=== PATIENT | male | born 1990 | race Caucasian/White ===

== ENCOUNTER 2017-11-14 02:30 | Emergency (ER) | payer SELFPAY ==
[2017-11-14] VITALS (8 sets, daily range): BP systolic 94–133; BP diastolic 56–78; PULSE 68–90; RESP 13–18; TEMP 35.9; O2SAT 94–100; BMI 23.1
--- NOTE | 2017-11-14 02:45 | EKG12_ITS ---
Test Reason : ALT MENTAL STATUS Blood Pressure : / mmHG Vent. Rate : 079 BPM Atrial Rate : 079 BPM P-R Int : 124 ms QRS Dur : 096 ms QT Int : 414 ms P-R-T Axes : 065 071 055 degrees QTc Int : 474 ms Normal sinus rhythm with sinus arrhythmia Normal ECG Confirmed by BLAKE PERAZA, PAMELLA ([id number]), field map editor TERA SEGAL ([id number]) on 11/17/2017 1:30:19 PM Referred By: KEATON Confirmed By:PAMELLA LOZANO MD
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
--- NOTE | 2017-11-14 02:55 | ED.RN ---
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
[2017-11-14 03:03] LABS: Absolute Lymphocyte Count 1.54 X10^3/ul (0.83-4.51); Absolute Neutrophil Count 7.2 X10^3/uL (2.0-7.7); Basophil# 0.05 X10^3/uL; Basophil% 0.5 % (0-1); Eosinophil# 0.15 X10^3/uL; Eosinophils% 1.5 % (0-5); Hematocrit 43.3 % (40-54); Hemoglobin 15.2 g/dl (13.0-16.5); Lymphocyte # 1.54 X10^3/ul (4.0); Lymphocyte % 15.6 % (19-41); Mean Corp Hgb Conc 35.1 g/gl (32-36); Mean Corpuscular Hgb 30.7 pg (27.0-32.0); Mean Corpuscular Volume 87.5 fL (80-94); Mean Platelet Vol. 9.4 fl (6.2-12.0); Monocyte% 9.1 % (0-10); Neutrophil # 7.21 X10^3/uL (2.7-7.7); Neutrophil % 73.2 % (47-70); POSITIVE COUNT NO; POSITIVE DIFFERENTIAL NO; POSITIVE MORPHOLOGY NO; Platelet Count 268 K/mm3 (150-450); RBC Distribution Width CV 13.2 % (11.6-14.6); RBC Distribution Width SD 42.2 fl (35.1-43.9); Red Blood Count 4.95 M/mm3 (4.6-6.2); White Blood Count 9.9 K/mm3 (4.4-11.0)
[2017-11-14 03:24] LABS: AST(SGOT) 15 U/L (15-37); Alanine Aminotransfer ALT/SGPT 18 U/L (16-61); Albumin, Serum 4.2 g/dL (3.2-5.0); Alkaline Phosphatase 82 U/L (45-117); Anion Gap 9 (5-15); BUN 14 mg/dL (7-18); BUN/Creat Ratio 16.3 RATIO (10-20); Bilirubin, Direct 0.24 mg/dL (0.00-0.30); Calcium,Total 8.7 mg/dL (8.5-10.1); Chloride 106 mmol/L (98-107); Creatinine, Serum 0.86 mg/dL (0.70-1.30); EST Glomerular Filtration Rate 115 mL/min (>60); Est Glom Filt Rate - Afr Amer 139 mL/min (>60); Estimated Creatinine Clearance 139.85 ml/min; Globulin 3.6 g/dL (2.2-4.2); Glucose 90 mg/dL (74-106); Potassium 3.6 mmol/L (3.5-5.1); Protein, Total 7.8 g/dL (6.4-8.2); Sodium Level 140 mmol/L (136-145)
[2017-11-14 03:43] LABS: Alcohol, Blood (Medical)-Serum < 3.0 mg/dL
[2017-11-14 03:47] LABS: Squamous Epithelial Cells - UA 0 SEEN /hpf (0-5)
[2017-11-14 03:52] LABS: Color, Urine Amber (Yellow); Glucose, Dipstick Normal (Normal); Ketone-Dipstick 5 mg/dl (Negative); Leukocyte Esterase-Dipstick 25 /ul (Negative); Nitrite-Dipstick Negative (Negative); Occult Blood-Urine 25 /ul (Negative); Protein-Dipstick 30 mg/dl (Negative); Specific Gravity, Urine 1.025 (1.002-1.030); Urine Clarity Clear (Clear); Urine Urobilinogen 4 mg/dl (Normal)
[2017-11-14 03:59] LABS: Mucous, Urine 3+ /hpf (<or=2+); Red Blood Cells-Urine 0-5 SEEN /hpf (0-5); White Blood Cells 5-10 SEEN /hpf (0-5)
[2017-11-14 04:00] LABS: Urine Bilirubin Dipstick 1 mg/dL (Negative)
--- NOTE | 2017-11-14 04:05 | ED.RN ---
spoke with patients mother at this time and notified her that he is in the ER. Per mother she has no contact with her son. All information should go through his grandmother. mothers phone number [phone]
[2017-11-14 04:12] LABS: Amphetamine Urine VISTA POSITIVE (<1000 ng/mL); Barbiturate Urine VISTA NEGATIVE (< 200 ng/mL); Benzodiazepine Urine VISTA NEGATIVE (< 200 ng/mL); Cocaine Urine VISTA NEGATIVE (< 300 ng/mL); Ecstacy Urine VISTA NEGATIVE (< 500 ng/mL); Methadone Urine VISTA NEGATIVE (< 300 ng/mL); PCP Urine VISTA NEGATIVE (< 25 ng/mL); THC Urine VISTA POSITIVE (< 50 ng/mL); Vista UDS pH Range 6
--- NOTE | 2017-11-14 08:53 | NURSING ---
CALLED CRISIS, CATALINA
--- NOTE | 2017-11-14 11:10 | ED.DEP ---
ED Disposition - Plan for ED Patient: Disposition: Home or Assisted Living Chief Complaint: Mental Health Instructions: ED Drug Abuse General Referrals: EIGHTY,ONE [STAFF PHYSICIAN] - Counseling,Center [GROUP OF PHYSICIANS] - Keep Jorge appointment
== END 2017-11-14 11:24 | disposition home or self-care (01) ==
PROVIDERS: Emergency Provider Emergency Medicine
DX: F29 Unspecified psychosis not due to a substance or known physiological condition (principal); R45.851 Suicidal ideations
CPT/HCPCS: 70450; 71046; 80048; 80076; 80307; 80320; 81001; 85025; 87086; 87088; 93005; 99283; G0480

== ENCOUNTER 2018-01-08 15:44 | Emergency (ER) | payer SELFPAY ==
[2018-01-08] VITALS (8 sets, daily range): BP systolic 88–146; BP diastolic 57–104; PULSE 65–112; RESP 14–22; TEMP 36.9; O2SAT 96–99; BMI 20.9
--- NOTE | 2018-01-08 15:55 | ED.RN ---
PT ARRIVED WITH HANDCUFFS, HANDCUFFS REMOVED AND PT IN RESTRAINTS.
--- NOTE | 2018-01-08 16:13 | ED.DCSUM_ITS ---
- ER Visit Summary Date of Service: 01/08/18 Chief Complaint: Depressed, agitated and suicidal History of Present Illness: The patient is a 27 M police were called and seen. Patient was threatening to harm himself. He had already caused multiple superficial lacerations from cutting himself on his upper extremities chest and lower extremities. All were superficial wounds. None need to be repaired. He was holding something to his neck threatening to kill himself. It happened to be a golf divot tool. Denies any overdose. He does believe that he used cocaine today. And has a history of drug abuse. He was tasered by the police. Physical Examination: Young male agitated. Currently in four-point restraints. Emotionally upset and tearful. Physically very active. Vital signs are stable. He is afebrile. He does not smell of alcohol. H EENT exam atraumatic. Pupils round reactive light. No facial or scalp trauma. Neck nontender trachea midline. No signs of trauma. Lungs clear to auscultation bilaterally. Chest wall nontender. He does have multiple superficial lacerations on his upper chest and upper left shoulder and extremity. Heart regular rhythm rate about 110 no murmur. Abdomen soft nontender. No peritoneal signs. Pelvic girdle intact. He is moving all 4 extremities. Neurovascular intact. And of the wounds are significant enough to need to be sewn they are all superficial lacerations that are self-inflicted. Back exam is nontender. Neurologically is awake alert moving all 4 extremities. Following commands and answering questions. Test Results: Mental health workup. Emergency Department Course and Treatment: ing center personnel is here. They are going to talk with the patient. They did review his history and he has not been the counseling center for over a year. He is a no-show on multiple visits. Treatment Plan: Number ED mental health evaluation by the counseling center will decide on a disposition. Disposition: [] Impression: Acute agitation and depression with a history of underlying psychiatric illness This note was generated with [employer]TM) by [employer] dictation software. It may contain incorrect words, spelling, and punctuation that were not noted in review of the chart prior to signing ED Disposition - Plan for ED Patient: Chief Complaint: Mental Health Referrals: Care Physician,No Primary [Primary Care Provider] -
[2018-01-08] MEDS: Ziprasidone IM 20 MG/ML VIAL IM (16:18)
[2018-01-08 16:21] LABS: Absolute Lymphocyte Count 2.11 X10^3/ul (0.83-4.51); Absolute Neutrophil Count 4.8 X10^3/uL (2.0-7.7); Basophil# 0.08 X10^3/uL; Eosinophil# 0.14 X10^3/uL; Eosinophils% 1.7 % (0-5); Hemoglobin 14.5 g/dl (13.0-16.5); Lymphocyte # 2.11 X10^3/ul (4.0); Lymphocyte % 26.1 % (19-41); Mean Corp Hgb Conc 34.5 g/gl (32-36); Mean Corpuscular Hgb 29.7 pg (27.0-32.0); Mean Corpuscular Volume 85.9 fL (80-94); Mean Platelet Vol. 10.1 fl (6.2-12.0); Monocyte# 0.95 X10^3/uL; Monocyte% 11.8 % (0-10); Neutrophil # 4.79 X10^3/uL (2.7-7.7); Neutrophil % 59.3 % (47-70); Platelet Count 276 K/mm3 (150-450); RBC Distribution Width CV 13.3 % (11.6-14.6); RBC Distribution Width SD 40.9 fl (35.1-43.9); Red Blood Count 4.89 M/mm3 (4.6-6.2); White Blood Count 8.1 K/mm3 (4.4-11.0)
[2018-01-08 16:25] LABS: Anion Gap 13 (5-15); BUN 7 mg/dL (7-18); BUN/Creat Ratio 5.7 RATIO (10-20); Chloride 107 mmol/L (98-107); Creatinine, Serum 1.22 mg/dL (0.70-1.30); EST Glomerular Filtration Rate 77 mL/min (>60); Est Glom Filt Rate - Afr Amer 93 mL/min (>60); Estimated Creatinine Clearance 94.26 ml/min; Glucose 91 mg/dL (74-106); Potassium 3.4 mmol/L (3.5-5.1); Sodium Level 143 mmol/L (136-145)
[2018-01-08 16:26] LABS: POSITIVE COUNT NO; POSITIVE DIFFERENTIAL NO; POSITIVE MORPHOLOGY NO
--- NOTE | 2018-01-08 17:19 | ED.RN ---
LINETTE WITH CRISIS CALLED AND ASKED TO BE CONTACTED WHEN PATIENTS URINE RESULTS COME BACK
[2018-01-08 17:34] LABS: Amphetamine Urine VISTA POSITIVE (<1000 ng/mL); Barbiturate Urine VISTA NEGATIVE (< 200 ng/mL); Benzodiazepine Urine VISTA NEGATIVE (< 200 ng/mL); Cocaine Urine VISTA NEGATIVE (< 300 ng/mL); Ecstacy Urine VISTA POSITIVE (< 500 ng/mL); Methadone Urine VISTA NEGATIVE (< 300 ng/mL); PCP Urine VISTA NEGATIVE (< 25 ng/mL); THC Urine VISTA POSITIVE (< 50 ng/mL); Vista UDS pH Range 6
--- NOTE | 2018-01-08 19:35 | ED.RN ---
NURSE WENT IN TO TALK TO PT TO SEE IF HE WAS COOPERATIVE ENOUGH TO START TAKING RESTRAINTS OFF, WHEN ASKED IF PT WOULD BE COOPERATIVE IF NURSE TOOK ONE RESTRAINT OFF PT SHOOK HIS HEAD NO AND WOULD NOT REPLY TO ANY OF THE NURSES QUESTIONS
--- NOTE | 2018-01-08 20:50 | ED.RN ---
AT THIS TIME PT HAD RIGHT WRIST RESTRAINT REMOVED, PT STATED THAT HE WOULD COOPERATE WITH NURSING STAFF AND LONG HE COOPERATES HE CAN KEEPS THIS RESTRAINT OFF AND WE WILL CONTINUE TO REMOVE RESTRAINTS BASED ON HIS COOPERATION.PT WAS GIVEN A SANDWICH, COOKIES AND WATER AT THIS TIME
--- NOTE | 2018-01-08 21:27 | ED.RN ---
PT REPORTS WANTING TO BE TAKEN OUT OF RESTRAINTS, PT IS CURRENTLY COOPERATIVE WITH THE REMOVAL OF HIS SHORTS, BLANKETS, PILLOW AND DRINKS PROVIDED FOR COMFORT. PT'S LEFT LEG TAKEN OUT OF RESTRAINTS
--- NOTE | 2018-01-08 21:50 | ED.RN ---
PT IS STILL BEING COOPERATIVE AND AGREES TO STAY COOPERATIVE SO HIS LAST TWO RESTRAINTS WERE REMOVED, PT EXPLAINED TO THAT LONG HE STAYS COOPERATIVE WITH US THEN HE WILL REMAIN OUT OF THE RESTRAINTS
[2018-01-09] VITALS (10 sets, daily range): BP systolic 103–123; BP diastolic 52–77; PULSE 54–85; RESP 16–20; O2SAT 96–98
--- NOTE | 2018-01-09 00:19 | EKG12_ITS ---
Test Reason : MENTAL HEALTH Blood Pressure : / mmHG Vent. Rate : 052 BPM Atrial Rate : 052 BPM P-R Int : 120 ms QRS Dur : 104 ms QT Int : 456 ms P-R-T Axes : 053 075 070 degrees QTc Int : 424 ms Sinus bradycardia Otherwise normal ECG Confirmed by RUBI PERAZA, LINA ([id number]), newspaper copy editor TERA SEGAL ([id number]) on 01/14/2018 1:53:55 PM Referred By: RICARDO Confirmed By:LINA VENEGAS MD
[2018-01-09 00:54] LABS: AST(SGOT) 19 U/L (15-37); Alanine Aminotransfer ALT/SGPT 13 U/L (16-61); Albumin, Serum 3.5 g/dL (3.2-5.0); Alkaline Phosphatase 76 U/L (45-117); Bilirubin, Direct 0.15 mg/dL (0.00-0.30); Protein, Total 6.5 g/dL (6.4-8.2)
--- NOTE | 2018-01-09 06:57 | NURSING ---
LINETTE CALLED FROM CRISIS. IS GOING TO CALL [facility] TO SEE WHAT THE STATUS OF THE [facility] [facility] IS.
--- NOTE | 2018-01-09 08:53 | ED.RN ---
PT REFUSES TO BE TRANSFERRED. WILL NOT GET ON COT. MEAL GIVEN PT CONTINUES TO REFUSE. SECURITY AT BEDSIDE. POLICE CALLED. [place]
[2018-01-09] MEDS: Ziprasidone IM 20 MG/ML VIAL IM (09:27)
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
[2018-01-09] MEDS: LORazepam 2 MG/ML Syringe IM (09:56)
== END 2018-01-09 09:35 ==
PROVIDERS: Emergency Medicine; Emergency Provider Emergency Medicine
DX: F32.9 Major depressive disorder, single episode, unspecified (principal); R45.1 Restlessness and agitation; X78.9XXA Intentional self-harm by unspecified sharp object, initial encounter; Y93.9 Activity, unspecified; Y92.89 Other specified places as the place of occurrence of the external cause; Y99.9 Unspecified external cause status; Z72.0 Tobacco use; F12.10 Cannabis abuse, uncomplicated
CPT/HCPCS: 80048; 80076; 80307; 80320; 85025; 93005; 99285; A4216; G0480; J3486

== ENCOUNTER 2018-02-11 10:39 | Outpatient (REF) | payer SELFPAY ==
[2018-02-11 08:55] VITALS: BP 114/67; PULSE 73; RESP 16; TEMP 36.4; O2SAT 97; BMI 21.1
--- NOTE | 2018-02-11 09:03 | EKG12_ITS ---
Test Reason : [facility] [place] Blood Pressure : / mmHG Vent. Rate : 062 BPM Atrial Rate : 062 BPM P-R Int : 126 ms QRS Dur : 102 ms QT Int : 422 ms P-R-T Axes : 050 074 068 degrees QTc Int : 428 ms Normal sinus rhythm with sinus arrhythmia Normal ECG Confirmed by BLAKE PERAZA, PAMELLA ([id number]), production editor JOSÉ TAFOYA ([id number]) on 02/13/2018 9:08:16 AM Referred By: EVERTON Confirmed By:PAMELLA LOZANO MD
--- NOTE | 2018-02-11 09:08 | CT_ITS ---
STUDY: CT BRAIN WITHOUT CONTRAST REASON FOR EXAM: Male, 27 years old. Trauma RADIATION DOSAGE (If Supplied By Facility): CTDIvol = ( 44.99 ) mGy, DLP = ( 762.36 ) mGycm TECHNIQUE: Transaxial CT imaging of the brain was performed without administration of intravenous contrast material. Sagittal and coronal reconstructed images are provided and reviewed. Individualized dose optimization techniques were used for this CT. COMPARISON: 11/14/2017 FINDINGS: Normal soft tissue structures. Normal calvarium. Normal size ventricles and extra-axial spaces for the patient's age. Normal white matter tracts of the cerebral hemispheres. Normal basal ganglia and thalami. Normal brainstem. Normal cerebellum. There is no intracranial hemorrhage. There are no findings of an acute ischemic infarction. Normal visualized paranasal sinuses. CT/Brain/Head without Contrast IMPRESSION: Normal unenhanced CT scan of the brain. Electronically Signed: Wsely Quinteros DO at 10:17 EDT Tel , Service support ,
--- NOTE | 2018-02-11 09:08 | RAD_ITS ---
STUDY: X-RAY - RIGHT HAND REASON FOR EXAM: Male, 27 years old. Pain TECHNIQUE: 3 view(s) of the hand. COMPARISON: None. FINDINGS: Normal radiocarpal articulation. Normal distal radioulnar joint. Normal visualized carpal bones. Normal carpal articulations Normal carpometacarpal articulation of the thumb. Normal second through fifth carpometacarpal joints. There is deformity to the fifth metacarpal suggesting remote fracture. Normal metacarpophalangeal joint of the thumb. Normal interphalangeal joint of the thumb. Normal proximal and distal phalanges of the thumb. Normal metacarpophalangeal joints of the second through fifth fingers. Normal proximal and distal interphalangeal joints of the second through fifth fingers. Normal phalanges of the second through fifth fingers. The soft tissue structures are unremarkable. RAD/Hand Min 3 Views IMPRESSION: Suspected remote fracture to the fifth metacarpal. No acute fracture is seen. Electronically Signed: Wesly Quinteros DO at 9:53 EDT Tel , Service support ,
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
[2018-02-11 09:19] LABS: Absolute Lymphocyte Count 2.28 X10^3/ul (0.83-4.51); Absolute Neutrophil Count 2.6 X10^3/uL (2.0-7.7); Basophil# 0.06 X10^3/uL; Eosinophil# 0.28 X10^3/uL; Eosinophils% 4.6 % (0-5); Hematocrit 42.8 % (40-54); Hemoglobin 14.3 g/dl (13.0-16.5); Lymphocyte # 2.28 X10^3/ul (4.0); Lymphocyte % 37.7 % (19-41); Mean Corp Hgb Conc 33.4 g/gl (32-36); Mean Corpuscular Hgb 29.1 pg (27.0-32.0); Mean Corpuscular Volume 87.2 fL (80-94); Mean Platelet Vol. 9.6 fl (6.2-12.0); Monocyte# 0.81 X10^3/uL; Monocyte% 13.4 % (0-10); Neutrophil # 2.62 X10^3/uL (2.7-7.7); Neutrophil % 43.3 % (47-70); Platelet Count 235 K/mm3 (150-450); RBC Distribution Width CV 13.8 % (11.6-14.6); RBC Distribution Width SD 44.2 fl (35.1-43.9); Red Blood Count 4.91 M/mm3 (4.6-6.2); White Blood Count 6.1 K/mm3 (4.4-11.0)
[2018-02-11 09:20] LABS: POSITIVE COUNT NO; POSITIVE DIFFERENTIAL NO; POSITIVE MORPHOLOGY NO
[2018-02-11 09:31] LABS: Amphetamine Urine VISTA POSITIVE (<1000 ng/mL); Barbiturate Urine VISTA NEGATIVE (< 200 ng/mL); Benzodiazepine Urine VISTA NEGATIVE (< 200 ng/mL); Cocaine Urine VISTA NEGATIVE (< 300 ng/mL); Ecstacy Urine VISTA NEGATIVE (< 500 ng/mL); Methadone Urine VISTA NEGATIVE (< 300 ng/mL); PCP Urine VISTA NEGATIVE (< 25 ng/mL); THC Urine VISTA POSITIVE (< 50 ng/mL); Vista UDS pH Range 6
[2018-02-11 09:37] LABS: ALB/GLOB Ratio 1.2 RATIO (0.9-2.4); AST(SGOT) 14 U/L (15-37); Alanine Aminotransfer ALT/SGPT 24 U/L (16-61); Albumin, Serum 3.8 g/dL (3.2-5.0); Alkaline Phosphatase 76 U/L (45-117); Anion Gap 8 (5-15); BUN 12 mg/dL (7-18); BUN/Creat Ratio 13.2 RATIO (10-20); Calcium,Total 8.9 mg/dL (8.5-10.1); Chloride 105 mmol/L (98-107); Creatinine, Serum 0.91 mg/dL (0.70-1.30); EST Glomerular Filtration Rate 108 mL/min (>60); Est Glom Filt Rate - Afr Amer 130 mL/min (>60); Estimated Creatinine Clearance 127.38 ml/min; Globulin 3.3 g/dL (2.2-4.2); Glucose 107 mg/dL (74-106); Potassium 3.5 mmol/L (3.5-5.1); Protein, Total 7.1 g/dL (6.4-8.2); Sodium Level 142 mmol/L (136-145)
[2018-02-11 10:01] LABS: Alcohol, Blood (Medical)-Serum < 3.0 mg/dL
--- NOTE | 2018-02-11 10:08 | ED.DEP ---
ED Disposition - Plan for ED Patient: Disposition: Home or Assisted Living Chief Complaint: Mental Health Instructions: ED Depression Referrals: Counseling,Center [GROUP OF PHYSICIANS] -
[2018-02-11 10:38] VITALS: BP 111/53; PULSE 84; RESP 12; O2SAT 96
== END 2018-02-11 14:00 | disposition home or self-care (01) ==
LOC: ED 10:39
PROVIDERS: Visit Provider Emergency Medicine
DX: R45.851 Suicidal ideations (principal); F33.9 Major depressive disorder, recurrent, unspecified
CPT/HCPCS: 70450; 73130; 80053; 80307; 80320; 85025; 93005; G0480